=== PATIENT | male | born 1980 | race Caucasian/White ===

== ENCOUNTER 2017-04-03 17:57 | Emergency (ER) | payer SELFPAY ==
[~2017-04-03] VITALS: Ht 177.8 cm; Wt 85.0 kg
[2017-04-03 17:58] VITALS: BP 153/85; PULSE 85; RESP 16; TEMP 99.5; O2SAT 97
--- NOTE | 2017-04-03 18:04 | PD ---
Physical Exam Date Seen by Provider: Apr 03, 2017 Time Seen by Provider: 18:03 Narrative 36 yo male here for evaluation of cold like symptoms. having cough, runny nose, body aches, sore throat. Going on since sunday. No other medical issues. Vitals are stable in triage. Awaiting bed placement. Data Data Last Documented VS Vital Signs Date Time Temp Pulse Resp B/P (MAP) Pulse Ox O2 Delivery O2 Flow Rate FiO2 04/03/17 17:58 99.5 85 16 153/85 (107) 97 Room Air [facility] Medical Record Reviewed: Yes Supervised Visit with BRONWYN: No Cole Nolasco Apr 03, 2017 18:04
[2017-04-03] MEDS ORDERED: ZITH250T PO (20:17)
--- NOTE | 2017-04-03 20:20 | PD ---
HPI Chief Complaint: Cold / Flu Symptoms Time Seen by Provider: 20:12 Travel History International Travel<30 days: No Contact w/Intl Traveler<30days: No Traveled to known affect area: No History of Present Illness HPI 36-year-old white male presents to emergency department with complaints of headache, congestion, sneezing, slight cough, mild sore throat, myalgias, arthralgias, decreased energy and general malaise for the past week. He denies any persistent fever or chills. No ear pain, sputum production, nausea, vomiting, diarrhea or abdominal pain. No urine symptoms. Symptoms are moderate. No alleviating factors. No exacerbating factors. PFSH Past Medical History Narrative Medical Denies diabetes Immunizations Current: Yes Tetanus Vaccination: Unknown Influenza Vaccination: No Past Surgical History Surgical History: No Previous Surgery Social History Alcohol Use: No Tobacco Use: No Substance Use: No Allergies-Medications (Allergen,Severity, Reaction): Coded Allergies: penicillin V (Verified Allergy, Severe, Anaphylaxis, 04/03/17) Reported Meds & Prescriptions Reported Meds & Active Scripts Active Zithromax (Azithromycin) 250 Mg Tab 250 Mg PO DIRECTED Take 2 tabs (500 mg) on day 1 then 1 tab daily x 4 days. Review of Systems Except as stated in HPI: all other systems reviewed are Neg Physical Exam Narrative GENERAL: Well-developed, well-nourished in no acute distress. Nontoxic appearing. HEAD: Normocephalic, atraumatic. EYES: Pupils equal round and reactive. Extraocular motions intact. No scleral icterus. No injection or drainage. ENT: TMs clear without erythema. The external auditory canals clear. Nose: clear . Posterior pharynx is pink and moist. No tonsillar edema or exudate. Uvula midline. Airway patent. NECK: Trachea midline.Supple, nontender, moves head freely. No central bony tenderness or spasm. CARDIOVASCULAR: Regular rate and rhythm without murmurs, gallops, or rubs. RESPIRATORY: Clear to auscultation. Breath sounds equal bilaterally. No wheezes , rales, or rhonchi. GASTROINTESTINAL: Abdomen soft, non-tender, nondistended. No hepato-splenomegaly , or palpable masses. No guarding. EXTREMITIES: No clubbing, cyanosis, or edema. No joint tenderness, effusion, or edema noted. BACK: Nontender without deformity or crepitance. No flank tenderness. Data Data Last Documented VS Vital Signs Date Time Temp Pulse Resp B/P (MAP) Pulse Ox O2 Delivery O2 Flow Rate FiO2 04/03/17 17:58 99.5 85 16 153/85 (107) 97 Room Air Orders Orders Ed Discharge Order (04/03/17 20:16) MDM Medical Decision Making Medical Screen Exam Complete: Yes Emergency Medical Condition: Yes Medical Record Reviewed: Yes Differential Diagnosis MDM: High Differential diagnoses: Pneumonia, bronchitis, URI, asthma, RAD, legionnaire's disease, SARS, ARDS, influenza, bronchiolitis, RSV,PE,CHF Narrative Course I explained to the patient that his symptoms are most likely viral. I agreed to give him an antibiotic in case there is a secondary bronchitis. This is bronchitis Diagnosis Primary Impression: bronchitis Patient Instructions: General Instructions Departure Forms: Tests/Procedures, Work Release Special Instructions: No work 3 days. Additional Instructions: Rest. Increase fluids. Tylenol and Advil. Robitussin-DM. Zithromax Followup with your Dr. in one week. Return to the ER for any problems. Med/Other Pt SpecificInfo: Prescription(s) given Scripts Azithromycin (Zithromax) 250 Mg Tab 250 MG PO DIRECTED for Infection, #6 TAB 0 Refills Take 2 tabs (500 mg) on day 1 then 1 tab daily x 4 days. Prov: Wang Rothman MD 04/03/17 Disposition: 01 DISCHARGE HOME Condition: Stable Ruiz Jacobsen Apr 03, 2017 20:20
== END 2017-04-03 20:28 | disposition home or self-care (01) ==
LOC: NEPK 17:57
DX: J40 Bronchitis, not specified as acute or chronic (principal); R51 Headache; R06.7 Sneezing; R07.0 Pain in throat; M79.1 Myalgia; M25.50 Pain in unspecified joint
CPT/HCPCS: 99283